=== PATIENT | female | born 1985 | race Caucasian/White ===

== ENCOUNTER → 2016-10-25 | Outpatient (REF) | payer BC ==
[~2016-10-25] MED LIST: IBUP600T26 PO; ZANTTAB9 PO
[2016-10-25 21:23] LABS: MEAN CORPUSCULAR HEMOGLOBIN 31.8 pg (27.0-33.0); MEAN CORPUSCULAR HGB CONC 33.5 g/dl (32.0-36.5); MEAN CORPUSCULAR VOLUME 95.1 fl (80.0-96.0); RED CELL DISTRIBUTION WIDTH 11.7 % (11.5-14.5)
[2016-10-25 22:44] LABS: HCG, SERUM QUANTITATIVE 7928 MIU/ML
[2016-10-26 08:40] LABS: HIV SCRN NEGATIVE (NEGATIVE); HIV SCRN1 NEGATIVE (NEGATIVE)
[2016-10-26 08:41] LABS: CONTROL LINE INT CTR LINE PRESENT
[2016-10-27 10:11] LABS: HEPATITIS B SURFACE ANTIBODY NEGATIVE (POSITIVE)
== END ==
LOC: M LAB REF 16:23
PROVIDERS: ATTEND Obstetrics & Gynecology
DX: O36.80X0 Pregnancy with inconclusive fetal viability, not applicable or unspecified (principal); Z3A.00 Weeks of gestation of pregnancy not specified

== ENCOUNTER 2016-11-15 07:15 | Emergency (ER) | payer BC ==
[2016-11-15] MEDS ORDERED: diphenhydrAMINE 25 MG CAP As Ordered ONE (07:43)
--- NOTE | 2016-11-15 08:03 | EDDOCDS ---
Nurse's Notes [facility] Name: Lakesha Gonzalez Age: 31 yrs Sex: Female : 1985 Arrival Date: 11/15/2016 Time: 07:15 Bed 9 Private MD: Diagnosis: Allergic contact dermatitis Presentation: 11/15 07:20 Presenting complaint: Patient states: states rash to torso, noticed this am, allergy ml6 bees strawberries. Adult Sepsis Screening: The patient does not have new or worsening altered mentation. Patient's respiratory rate is less than 22. Systolic blood pressure is greater than 100. Patient has a qSOFA score of 0- Negative Sepsis Screen. Suicide/Homicide risk assessment- the patient denies having any suicidal and/or homicidal ideations and does not present with any other emotional, behavioral or mental health complaints. Status: Patient is not a health services director or dependent. Transition of care: patient was not received from another setting of care. 07:20 Acuity: GINNA Level 4 ml6 07:20 Acuity: GINNA Level 3 ml6 07:20 Method Of Arrival: Walkin/Carried/Asstd ml6 Triage Assessment: 07:23 General: Appears in no apparent distress, Behavior is appropriate for age, cooperative. ml6 Pain: Denies pain. HIV screening NA for this visit Offered previously. Neurological: No deficits noted. Cardiovascular: No deficits noted. Capillary refill < 3 seconds is brisk in bilateral fingers toes. Respiratory: Airway is patent Respiratory effort is even, unlabored, Respiratory pattern is regular, symmetrical, Breath sounds are clear bilaterally. Reports no respiratory complaints. Derm: Rash noted that is red, raised, on chest. 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 10-400 mg-mcg Oral cap 1 tablet daily (Last dose: 11/15/2016 07:00) - PMHx: none; - PSHx: right breast Bx; cervical Bx; - Social history: Smoking status: Patient uses tobacco products, heavy tobacco smoker. No barriers to communication noted, Speaks appropriately for age. - : The pt / caregiver states he / she is not on anticoagulants. Home medication list is obtained from the patient. - Exposure Risk Screening:: None identified. Screenin:47 Screening information is obtained from the patient. Fall risk: No risks identified. jmk Assistance ADL's: requires no assistance with activities of daily living. Abuse/DV Screen: The patient / caregiver reports he/she is: not in a situation that causes fear, pain or injury. Nutritional screening: No deficits noted. Advance Directives: Currently, there is no health care proxy. There is no active DNR order. There is no living will. There is no Power of Rooming House Inspector. Advance directive information has not previously been placed in an [facility] medical record. home support is adequate. Assessment: 07:46 General: Appears in no apparent distress, skin warm and dry color satisfactory moist jmk pink oral mucosa. scattered area of red raised rash over anterior chest. No resp distress. chest CTA. 07:48 Respiratory: No deficits noted. Airway is patent Respiratory effort is even, unlabored, k Respiratory pattern is regular, Breath sounds are clear bilaterally. Vital Signs: 07:21 BP 122 / 66; Pulse 85; Resp 16; Temp 97.5(TE); Pulse Ox 98% on R/A; Weight 61.23 kg ml6 (R); Height 5 ft. 4 in. (162.56 cm) (R); Pain 0/10; 07:21 Body Mass Index 23.17 (61.23 kg, 162.56 cm) ml6 Vitals: 07:21 Log In Time: November 15, 2016 at 07:14. ml6 ED Course: 07:17 Patient visited by Melquiades Marin. mm15 07:17 Patient moved to Waiting mm15 07:21 Triage Initiated ml6 07:25 Patient moved to [facility] Wait ml6 07:35 Patient moved to 9 sep 07:36 [facility] ke 07:36 Patient visited by Marco Benitez FNP. ke 07:36 Patient visited by Marco Benitez FNP. ke 07:40 Diane Lyons MD is Attending Physician. sd1 07:47 The patient / caregiver is instructed regarding the plan of care and ED course. k 07:47 No IV's were initiated during this patient's visit. No procedures done that require jmk assistance. Administered Medications: 07:46 Drug: diphenhydrAMINE 50 mg [diphenhydramine 25 mg capsule (2 caps)] Route: PO; jmk Order Results: There are currently no results for this order. Outcome: 07:43 Discharge ordered by Provider. sd1 08:02 Discharge Assessment: Patient awake, alert and oriented x 3. No cognitive and/or jmk functional deficits noted. Patient verbalized understanding of disposition instructions. patient administered narcotics - no. The following High Risk Discharge criteria are identified: None. Discharged to home ambulatory, with friend. Condition: good. Discharge instructions given to patient, Instructed on discharge instructions, follow up and referral plans. medication usage, Demonstrated understanding of instructions, medications, Pt was receptive of discharge instructions/ teaching. No special radiology studies were completed. Property :Personal belongings accompany Pt. 08:02 Patient left the ED. riddhik Signatures: Diane Lyons MD MD sd1 Toni Sharma,RN Judith Pisano, RN Marco Lewis FNP FNP ke Lowe, Matthew RN RN ml6 Melquiades Marin mm15 PREMA
--- NOTE | 2016-11-15 08:03 | EDDOCDS ---
Physician Documentation [facility] Name: Lakesha Gonzalez Age: 31 yrs Sex: Female : 1985 Arrival Date: 11/15/2016 Time: 07:15 Bed 9 Private MD: Disposition: 11/15/16 07:43 Discharged to Home/Self Care. Impression: Allergic contact dermatitis. - Condition is Stable. - Discharge Instructions: Allergies. - Prescriptions for hydrocortisone acetate 1 % Topical cream - apply 1 inch by TOPICAL route 2 times per day; 1 tube. - Medication Reconciliation, Local Pharmacy Hours form. - Follow up: Private Physician; When: 1 - 2 days. - Problem is new. - Symptoms are unchanged. Historical: - Allergies: Bees; Strawberries; glucose (tolerance test); - Home Meds: 1. 10-400 mg-mcg Oral cap 1 tablet daily (Last dose: 11/15/2016 07:00) - PMHx: none; - PSHx: right breast Bx; cervical Bx; - Social history: Smoking status: Patient uses tobacco products, heavy tobacco smoker. No barriers to communication noted, Speaks appropriately for age. - : The pt / caregiver states he / she is not on anticoagulants. Home medication list is obtained from the patient. - Exposure Risk Screening:: None identified. 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 4 in. (162.56 cm) (R); Pain 0/10; 07:21 Body Mass Index 23.17 (61.23 kg, 162.56 cm) ml6 MDM: 07:41 diphenhydrAMINE 50 mg PO once ordered. sd1 07:50 Financial registration complete. lg Administered Medications: 07:46 Drug: diphenhydrAMINE 50 mg [diphenhydramine 25 mg capsule (2 caps)] Route: PO; talia Signatures: Diane Lyons MD MD sd1 Toni Sharma,RN RN riddhik Cheyanne Villalobos, Mikel Loyola lg, RN RN ml6 LINETTED
--- NOTE | 2016-11-17 09:03 | EDDOCDS ---
Physician Documentation [facility] Name: Lakesha Gonzalez Age: 31 yrs Sex: Female : 1985 Arrival Date: 11/15/2016 Time: 07:15 Bed 9 Private MD: Disposition: 11/15/16 07:43 Discharged to Home/Self Care. Impression: Allergic contact dermatitis. - Condition is Stable. - Discharge Instructions: Allergies. - Prescriptions for hydrocortisone acetate 1 % Topical cream - apply 1 inch by TOPICAL route 2 times per day; 1 tube. - Medication Reconciliation, Local Pharmacy Hours form. - Follow up: Private Physician; When: 1 - 2 days. - Problem is new. - Symptoms are unchanged. Historical: - Allergies: Bees; Strawberries; glucose (tolerance test); - Home Meds: 1. 10-400 mg-mcg Oral cap 1 tablet daily (Last dose: 11/15/2016 07:00) - PMHx: none; - PSHx: right breast Bx; cervical Bx; - Social history: Smoking status: Patient uses tobacco products, heavy tobacco smoker. No barriers to communication noted, Speaks appropriately for age. - : The pt / caregiver states he / she is not on anticoagulants. Home medication list is obtained from the patient. - Exposure Risk Screening:: None identified. 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 4 in. (162.56 cm) (R); Pain 0/10; 07:21 Body Mass Index 23.17 (61.23 kg, 162.56 cm) ml6 MDM: 07:41 diphenhydrAMINE 50 mg PO once ordered. sd1 07:50 Financial registration complete. lg 08:57 [facility] Payment Agreement was scanned into [employer] and attached to record. lg 14:57 T-Sheet-- Draft Copy was scanned into [employer] and attached to record. gb Administered Medications: 07:46 Drug: diphenhydrAMINE 50 mg [diphenhydramine 25 mg capsule (2 caps)] Route: PO; talia Signatures: Diane Lyons MD MD sd1 Toni SharmaRN RN Mini Delacruz, Reg Reg gb Cheyanne Villalobos, Reg Reg lg Mikel Guerrero RN RN ml6 The chart was reviewed and I authenticate all verbal orders and agree with the evaluation and treatment provided.Attachments: 08:57 [facility] Payment Agreement lg 14:57 T-Sheet-- Draft Copy gb Chart Complete MTDD
--- NOTE | 2016-11-17 09:03 | EDDOCDS ---
Physician Documentation [facility] Name: Lakesha Gonzalez Age: 31 yrs Sex: Female : 1985 Arrival Date: 11/15/2016 Time: 07:15 Bed 9 Private MD: Disposition: 11/15/16 07:43 Discharged to Home/Self Care. Impression: Allergic contact dermatitis. - Condition is Stable. - Discharge Instructions: Allergies. - Prescriptions for hydrocortisone acetate 1 % Topical cream - apply 1 inch by TOPICAL route 2 times per day; 1 tube. - Medication Reconciliation, Local Pharmacy Hours form. - Follow up: Private Physician; When: 1 - 2 days. - Problem is new. - Symptoms are unchanged. Historical: - Allergies: Bees; Strawberries; glucose (tolerance test); - Home Meds: 1. 10-400 mg-mcg Oral cap 1 tablet daily (Last dose: 11/15/2016 07:00) - PMHx: none; - PSHx: right breast Bx; cervical Bx; - Social history: Smoking status: Patient uses tobacco products, heavy tobacco smoker. No barriers to communication noted, Speaks appropriately for age. - : The pt / caregiver states he / she is not on anticoagulants. Home medication list is obtained from the patient. - Exposure Risk Screening:: None identified. 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 4 in. (162.56 cm) (R); Pain 0/10; 07:21 Body Mass Index 23.17 (61.23 kg, 162.56 cm) ml6 MDM: 07:41 diphenhydrAMINE 50 mg PO once ordered. sd1 07:50 Financial registration complete. lg 08:57 [facility] Payment Agreement was scanned into [employer] and attached to record. lg 14:57 T-Sheet-- Draft Copy was scanned into [employer] and attached to record. gb Administered Medications: 07:46 Drug: diphenhydrAMINE 50 mg [diphenhydramine 25 mg capsule (2 caps)] Route: PO; talia Signatures: Diane Lyons MD MD sd1 Toni SharmaRN RN Mini Delacruz, Reg Reg gb Cheyanne Villalobos, Reg Reg lg Mikel Guerrero RN RN ml6 The chart was reviewed and I authenticate all verbal orders and agree with the evaluation and treatment provided.Attachments: 08:57 [facility] Payment Agreement lg 14:57 T-Sheet-- Draft Copy gb Chart Complete MTDD
--- NOTE | 2016-11-17 09:03 | EDDOCDS ---
Nurse's Notes [facility] Name: Lakesha Gonzalez Age: 31 yrs Sex: Female : 1985 Arrival Date: 11/15/2016 Time: 07:15 Bed 9 Private MD: Diagnosis: Allergic contact dermatitis Presentation: 11/15 07:20 Presenting complaint: Patient states: states rash to torso, noticed this am, allergy ml6 bees strawberries. Adult Sepsis Screening: The patient does not have new or worsening altered mentation. Patient's respiratory rate is less than 22. Systolic blood pressure is greater than 100. Patient has a qSOFA score of 0- Negative Sepsis Screen. Suicide/Homicide risk assessment- the patient denies having any suicidal and/or homicidal ideations and does not present with any other emotional, behavioral or mental health complaints. Status: Patient is not a service station attendant or dependent. Transition of care: patient was not received from another setting of care. 07:20 Acuity: GINNA Level 4 ml6 07:20 Acuity: GINNA Level 3 ml6 07:20 Method Of Arrival: Walkin/Carried/Asstd ml6 Triage Assessment: 07:23 General: Appears in no apparent distress, Behavior is appropriate for age, cooperative. ml6 Pain: Denies pain. HIV screening NA for this visit Offered previously. Neurological: No deficits noted. Cardiovascular: No deficits noted. Capillary refill < 3 seconds is brisk in bilateral fingers toes. Respiratory: Airway is patent Respiratory effort is even, unlabored, Respiratory pattern is regular, symmetrical, Breath sounds are clear bilaterally. Reports no respiratory complaints. Derm: Rash noted that is red, raised, on chest. 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 10-400 mg-mcg Oral cap 1 tablet daily (Last dose: 11/15/2016 07:00) - PMHx: none; - PSHx: right breast Bx; cervical Bx; - Social history: Smoking status: Patient uses tobacco products, heavy tobacco smoker. No barriers to communication noted, Speaks appropriately for age. - : The pt / caregiver states he / she is not on anticoagulants. Home medication list is obtained from the patient. - Exposure Risk Screening:: None identified. Screenin:47 Screening information is obtained from the patient. Fall risk: No risks identified. jmk Assistance ADL's: requires no assistance with activities of daily living. Abuse/DV Screen: The patient / caregiver reports he/she is: not in a situation that causes fear, pain or injury. Nutritional screening: No deficits noted. Advance Directives: Currently, there is no health care proxy. There is no active DNR order. There is no living will. There is no Power of Package Clerk. Advance directive information has not previously been placed in an [facility] medical record. home support is adequate. Assessment: 07:46 General: Appears in no apparent distress, skin warm and dry color satisfactory moist jmk pink oral mucosa. scattered area of red raised rash over anterior chest. No resp distress. chest CTA. 07:48 Respiratory: No deficits noted. Airway is patent Respiratory effort is even, unlabored, k Respiratory pattern is regular, Breath sounds are clear bilaterally. Vital Signs: 07:21 BP 122 / 66; Pulse 85; Resp 16; Temp 97.5(TE); Pulse Ox 98% on R/A; Weight 61.23 kg ml6 (R); Height 5 ft. 4 in. (162.56 cm) (R); Pain 0/10; 07:21 Body Mass Index 23.17 (61.23 kg, 162.56 cm) ml6 Vitals: 07:21 Log In Time: November 15, 2016 at 07:14. ml6 ED Course: 07:17 Patient visited by Melquiades Marin. mm15 07:17 Patient moved to Waiting mm15 07:21 Triage Initiated ml6 07:25 Patient moved to [facility] Wait ml6 07:35 Patient moved to 9 sep 07:36 [facility] ke 07:36 Patient visited by Marco Benitez FNP. ke 07:36 Patient visited by Marco Benitez FNP. ke 07:40 Diane Lyons MD is Attending Physician. sd1 07:47 The patient / caregiver is instructed regarding the plan of care and ED course. k 07:47 No IV's were initiated during this patient's visit. No procedures done that require jmk assistance. 08:55 Patient name changed from Lakesha\S\Suzy\S\Lisa\S\ to Lakesha\S\Nick\S\Lisa. EDMS 08:57 [facility] Payment Agreement was scanned into [employer] and attached to record. 14:57 T-Sheet-- Draft Copy was scanned into [employer] and attached to record. gb Administered Medications: 07:46 Drug: diphenhydrAMINE 50 mg [diphenhydramine 25 mg capsule (2 caps)] Route: PO; jmk Order Results: There are currently no results for this order. Outcome: 07:43 Discharge ordered by Provider. sd1 08:02 Discharge Assessment: Patient awake, alert and oriented x 3. No cognitive and/or jmk functional deficits noted. Patient verbalized understanding of disposition instructions. patient administered narcotics - no. The following High Risk Discharge criteria are identified: None. Discharged to home ambulatory, with friend. Condition: good. Discharge instructions given to patient, Instructed on discharge instructions, follow up and referral plans. medication usage, Demonstrated understanding of instructions, medications, Pt was receptive of discharge instructions/ teaching. No special radiology studies were completed. Property :Personal belongings accompany Pt. 08:02 Patient left the ED. talia Signatures: Dispatcher [facility] Diane Lyons MD MD sd1 Toni Sharma,RN Judith Pisano RN Mini Youssef, Reg Reg gb Cheyanne Villalobos, Reg Reg lg Marco Benitez, CLUBHOUSE MANAGER Mikel Apodaca, RN RN ml6 Melquiades Marin mm15 Chart Complete MTDD
== END 2016-11-15 08:02 | disposition home or self-care (01) ==
LOC: M ED 07:15
DX: O99.89 Other specified diseases and conditions complicating pregnancy, childbirth and the puerperium (principal); L23.9 Allergic contact dermatitis, unspecified cause; Z3A.08 8 weeks gestation of pregnancy; O99.331 Smoking (tobacco) complicating pregnancy, first trimester; Z79.899 Other long term (current) drug therapy; Z91.030 Bee allergy status; Z91.018 Allergy to other foods; Z88.8 Allergy status to other drugs, medicaments and biological substances

== ENCOUNTER → 2016-11-15 | Outpatient (CLI) | payer BC | LOC: M LAB 08:28 | PROVIDERS: ATTEND Specialist | DX: Z34.81 Encounter for supervision of other normal pregnancy, first trimester (principal) ==

== ENCOUNTER → 2016-11-17 | Outpatient (REF) | payer BC | LOC: M SFHCLERA 12:02 | PROVIDERS: ATTEND Nurse Practitioner Family | DX: R21 Rash and other nonspecific skin eruption (principal) ==

== ENCOUNTER → 2016-12-03 | Day surgery (SDC) | payer BC ==
[~2016-12-03] VITALS: Ht 162.6 cm; Wt 64.4 kg
[~2016-12-03] MED LIST changes: +ACETAMINOPHEN 500 MG TAB PO ONE; +KETOROLAC 30 MG/ML VIAL (J1885) As Ordered ONE; +KETOROLAC 30 MG/ML VIAL (J1885) IV PRN; +LIDOCAINE 1% SDV INJ 30 ML VIAL As Ordered ONE; +LIDOCAINE 2% INJ 100 MG/5 ML SDV (FOR ANES.) As Ordered ONE; +LR 1,000 ML IV SCH; +METOCLOPRAMIDE INJ 10MG/2ML VIAL (J2765) IV PRN; +MIDAZOLAM INJ 2 MG/2 ML VIAL (J2250) As Ordered ONE; +ONDANSETRON 4MG/2ML VIAL (J2405) IV PRN; +PERCOCET 5MG/325MG TAB PO PRN; +PROPOFOL 200 MG/20 ML VIAL As Ordered ONE; +[UNRECOGNIZED DRUG - CODE] PO; +fentaNYL 100 MCG/2 ML INJECTION (J3010) As Ordered ONE; +fentaNYL 100 MCG/2 ML INJECTION (J3010) IV PRN
[2016-12-03 15:45] VITALS: BP 105/54
--- NOTE | 2016-12-05 08:05 | RO ---
DATE OF PROCEDURE: 12/03/2016 PREOPERATIVE DIAGNOSIS: Embryonic demise. POSTOPERATIVE DIAGNOSIS: Embryonic demise. PROCEDURE: Dilation, evacuation and curettage. SURGEON: Vidal Philippe MD SKIVER SOCK LININGS: ANESTHESIA: General endotracheal. ESTIMATED BLOOD LOSS: 50 mL. FINDINGS: Moderate amount of product of conception, 8-9 week size uterus. OPERATIVE SUMMARY: The patient taken to the operating room where general endotracheal anesthesia was induced. She was prepped and draped in sterile fashion in the dorsal lithotomy position. A speculum was placed. The anterior lip of the cervix was grasped with a tenaculum. The cervix was dilated with tapered dilators. A #9 mm suction curette was placed through the internal os. The suction device was activated. The curette was gently rotated until products of conception were noted coming through the suction tubing. Sharp curettage was performed. The uterine cavity was deemed to be empty. All instruments were removed. Sponge and instrument counts were correct.
== END | disposition home or self-care (01) ==
LOC: M SDC 09:20
PROVIDERS: ATTEND Specialist
DX: O02.1 Missed abortion (principal); D64.9 Anemia, unspecified; F32.9 Major depressive disorder, single episode, unspecified; J45.909 Unspecified asthma, uncomplicated; F17.210 Nicotine dependence, cigarettes, uncomplicated; Z91.040 Latex allergy status; Z91.030 Bee allergy status
CPT/HCPCS: 36415; 59820; 85014; 85018; 88305; J1885; J2250; J3010

== ENCOUNTER 2016-12-09 05:14 | Emergency (ER) | payer BC ==
[~2016-12-09] VITALS: Ht 162.6 cm; Wt 61.7 kg
[~2016-12-09 05:14] MED LIST changes: -ACETAMINOPHEN 500 MG TAB PO ONE; -KETOROLAC 30 MG/ML VIAL (J1885) As Ordered ONE; -KETOROLAC 30 MG/ML VIAL (J1885) IV PRN; -LIDOCAINE 1% SDV INJ 30 ML VIAL As Ordered ONE; -LIDOCAINE 2% INJ 100 MG/5 ML SDV (FOR ANES.) As Ordered ONE; -LR 1,000 ML IV SCH; -METOCLOPRAMIDE INJ 10MG/2ML VIAL (J2765) IV PRN; -MIDAZOLAM INJ 2 MG/2 ML VIAL (J2250) As Ordered ONE; -ONDANSETRON 4MG/2ML VIAL (J2405) IV PRN; -PERCOCET 5MG/325MG TAB PO PRN; -PROPOFOL 200 MG/20 ML VIAL As Ordered ONE; -fentaNYL 100 MCG/2 ML INJECTION (J3010) As Ordered ONE; -fentaNYL 100 MCG/2 ML INJECTION (J3010) IV PRN
[2016-12-09] MEDS ORDERED: NS 1,000 ML IV ONE (05:45)
[2016-12-09] MEDS ORDERED: HYDROmorphone HCL 1 MG/ML SYRINGE (J1170) IV ONE (06:00)
[2016-12-09 06:39] LABS: BASO % 0.6 % (0.0-1.0); EOS # 0.1 K/mm3 (0.0-0.50); LARGE UNSTAINED CELL # 0.1 K/mm3 (0.0-0.4); LARGE UNSTAINED CELL % 1.5 % (0.0-4.0); LYMPH # 1.7 K/mm3 (1.5-4.5); LYMPH % 33.2 % (24.0-44.0); MEAN CORPUSCULAR HEMOGLOBIN 32.3 pg (27.0-33.0); MEAN CORPUSCULAR HGB CONC 34.5 g/dl (32.0-36.5); MEAN CORPUSCULAR VOLUME 93.4 fl (80.0-96.0); MONO # 0.3 K/mm3 (0.0-0.8); MONO % 5.2 % (0.0-5.0); NEUTROPHILS # 2.9 K/mm3 (1.8-7.7); NEUTROPHILS % 57.6 % (36.0-66.0); PLATELET COUNT, AUTOMATED 224 k/mm3 (150-450); RED CELL DISTRIBUTION WIDTH 11.9 % (11.5-14.5)
[2016-12-09 06:57] LABS: ANION GAP 9 MEQ/L (8-16); BLOOD UREA NITROGEN 13 MG/DL (7-18); CALCIUM LEVEL 8.9 MG/DL (8.5-10.1); CARBON DIOXIDE LEVEL 26 MEQ/L (21-32); CHLORIDE LEVEL 108 MEQ/L (98-107); CREATININE FOR GFR 0.73 MG/DL (0.55-1.02); GLOMERULAR FILTRATION RATE > 60.0 (>60); GLUCOSE, FASTING 102 MG/DL (70-105); POTASSIUM SERUM 4.3 MEQ/L (3.5-5.1); SODIUM LEVEL 143 MEQ/L (136-145)
[2016-12-09 07:13] VITALS: BP 126/60
[2016-12-09 07:19] LABS: INR 1.02
[2016-12-09] MEDS ORDERED: PERC5TAB6 PO (08:00)
--- NOTE | 2016-12-09 08:10 | REP ---
Clinical: Pelvic pain with recent dilatation and curettage. Technique: Transabdominal pelvic ultrasound followed by transvaginal examination for better evaluation of the endometrium and adnexa with color Doppler evaluation of the ovaries. Findings: Heterogeneous anteverted uterus measures 8.5 x 4.6 x 6.9 cm. Endometrial complex is heterogeneous and thickened to 19 mm complex material noted towards the fundus. Differential diagnosis includes hemorrhagic debris related to recent D C. However, retained products of conception cannot definitively be excluded. Ovaries are normal in appearance and vascularity without evidence for torsion. Right ovary measures 3.7 x 2.3 x 2.4 cm of 1.5 cm dominant follicle; RI= 0.47. Left ovary measures 2.7 x 2.6 x 2.0 cm and demonstrates satisfactory venous flow. Impression: Heterogeneous material distending the endometrial complex to 19 mm. Differential diagnosis includes hemorrhagic debris and retained products of conception cannot be excluded. Correlation with HCG levels recommended. Signed by Justice Cruz MD 12/09/2016 08:01 A
== END 2016-12-09 08:16 | disposition home or self-care (01) ==
LOC: M ED 06:22
DX: R10.2 Pelvic and perineal pain (principal); R93.8 Abnormal findings on diagnostic imaging of other specified body structures; Z91.040 Latex allergy status; Z91.030 Bee allergy status; Z79.899 Other long term (current) drug therapy
CPT/HCPCS: 36415; 76830; 76856; 80048; 85025; 85610; 85730; 93976; 96361; 96374; 99282; J1170

== ENCOUNTER → 2017-05-08 | Outpatient (CLI) | payer BC ==
[~2017-05-08] MED LIST changes: +PERC5TAB12 PO
--- NOTE | 2017-05-08 10:18 | REP ---
Acute abdominal series including PA chest and supine upright abdomen: Comparisons l2015. PA chest: Lung talavera are clear. Cardiac size is normal. The jorge, mediastinum, and bony thorax unremarkable. There is no free seven diaphragmatic air. Impression: Negative PA chest. No interval change. Abdomen, supine and upright views: The bowel gas pattern is normal. The skeletal structures and soft tissues are otherwise are. Faintly visible splenic calcified granulomas are incidentally noted, unchanged. Impression: Normal bowel gas pattern. No interval change. Signed by Sandeep Rock MD 05/08/2017 10:09 A
--- NOTE | 2017-05-08 10:20 | REP ---
Lumbar spine five views: There are no comparisons. Vertebral body heights, interspacing alignment are normal. There is no spondylolysis or spondylolisthesis. The facets, pedicles and sacroiliac articulations are unremarkable. Impression: Negative lumbar spine. Signed by Sandeep Rock MD 05/08/2017 10:11 A
== END ==
LOC: M WUC 09:05
PROVIDERS: ATTEND Physician Assistant
DX: M54.5 Low back pain (principal); R10.814 Left lower quadrant abdominal tenderness

== ENCOUNTER → 2017-08-23 | Outpatient (REF) | payer BC | LOC: M SFHCCLAY 16:18 | PROVIDERS: ATTEND Family Medicine | DX: R50.9 Fever, unspecified (principal) ==

== ENCOUNTER → 2017-09-14 | Outpatient (CLI) | payer BC ==
--- NOTE | 2017-09-14 19:05 | REP ---
RIGHT LOWER LEG: Two views. AP and lateral views of the right lower leg are performed and demonstrate no fracture or dislocation. No intrinsic osseous pathology is seen. IMPRESSION: No fracture or dislocation.
== END ==
LOC: M CLY 10:50
PROVIDERS: ATTEND Family Medicine
DX: S89.91XA Unspecified injury of right lower leg, initial encounter (principal); X58.XXXA Exposure to other specified factors, initial encounter; Y92.89 Other specified places as the place of occurrence of the external cause; Y93.89 Activity, other specified; Y99.8 Other external cause status

== ENCOUNTER 2018-02-28 11:01 | Emergency (ER) | payer BC ==
[2018-02-28 11:45] LABS: KETONE, URINE AUTO RFX NEGATIVE (NEGATIVE); MUCUS, URINE RFX SMALL (NEGATIVE); NITRITE, URINE AUTO RFX NEGATIVE (NEGATIVE); RBC, URINE AUTO RFX 0 /HPF (0-3); SPECIFIC GRAVITY UR AUTO RFX 1.019 (1.002-1.035); SQUAM EPITHELIAL CELL UR AURFX 4 /HPF (0-6); WBC, URINE AUTO RFX 1 /HPF (0-3)
[2018-02-28 12:11] LABS: LEUKOCYTE ESTERASE UR AUTO RFX TRACE (NEGATIVE)
[2018-02-28 12:44] LABS: BASO # 0.1 10^3/uL (0.0-0.2); BASO % 0.7 % (0.0-1.0); HEMATOCRIT 42.2 % (36.0-47.0); HEMOGLOBIN 14.6 g/dl (12.0-15.5); IMMATURE GRANULOCYTE % 0.4 % (0-3.0); LYMPH # 2.3 10^3/uL (1.5-4.5); LYMPH % 33.5 % (24.0-44.0); MEAN CORPUSCULAR HEMOGLOBIN 31.9 pg (27.0-33.0); MEAN CORPUSCULAR HGB CONC 34.6 g/dl (32.0-36.5); MEAN CORPUSCULAR VOLUME 92.3 fl (80.0-96.0); MONO # 0.6 10^3/uL (0.0-0.8); MONO % 7.9 % (0.0-5.0); NEUTROPHILS % 57.5 % (36.0-66.0); PLATELET COUNT, AUTOMATED 256 10^3/uL (150-450); RED BLOOD COUNT 4.57 10^6/uL (4.00-5.40); RED CELL DISTRIBUTION WIDTH 11.9 % (11.5-14.5); WHITE BLOOD COUNT 6.9 10^3/uL (4.0-10.0)
[2018-02-28] MEDS: ONDANSETRON 4MG/2ML VIAL (J2405) IV (12:50)
[2018-02-28] MEDS: NS 1,000 ML IV (12:50)
[2018-02-28] MEDS: KETOROLAC 30 MG/ML VIAL (J1885) IV (12:51)
[2018-02-28 13:22] LABS: ANION GAP 4 MEQ/L (8-16); BLOOD UREA NITROGEN 8 MG/DL (7-18); CALCIUM LEVEL 8.9 MG/DL (8.5-10.1); CARBON DIOXIDE LEVEL 26 MEQ/L (21-32); CHLORIDE LEVEL 107 MEQ/L (98-107); CREATININE FOR GFR 0.77 MG/DL (0.55-1.30); GLOMERULAR FILTRATION RATE > 60.0 (>60); GLUCOSE, FASTING 94 MG/DL (70-100); POTASSIUM SERUM 4.3 MEQ/L (3.5-5.1); SODIUM LEVEL 137 MEQ/L (136-145)
[2018-02-28] MEDS ORDERED: ISOVUE-370 76% 100ML VIAL (Q9967) As Ordered (13:43)
== END 2018-02-28 14:52 | disposition home or self-care (01) ==
LOC: M ED 11:01
DX: R10.9 Unspecified abdominal pain (principal); R19.7 Diarrhea, unspecified; R11.0 Nausea; J45.909 Unspecified asthma, uncomplicated; F41.9 Anxiety disorder, unspecified; F43.10 Post-traumatic stress disorder, unspecified; K57.92 Diverticulitis of intestine, part unspecified, without perforation or abscess without bleeding; F17.200 Nicotine dependence, unspecified, uncomplicated; Z87.442 Personal history of urinary calculi; Z91.018 Allergy to other foods; Z91.030 Bee allergy status; Z91.040 Latex allergy status
CPT/HCPCS: J2405

== ENCOUNTER → 2018-08-23 | Outpatient (REF) | payer BC ==
[2018-08-24 12:36] LABS: APPEARANCE, URINE CLOUDY (CLEAR); BACTERIA, URINE AUTO NEGATIVE (NEGATIVE); BILIRUBIN, URINE AUTO NEGATIVE (NEGATIVE); BLOOD, URINE BLOOD NEGATIVE (NEGATIVE); COLOR, URINE YELLOW (YELLOW); GLUCOSE, URINE (UA) AUTO NEGATIVE (NEGATIVE); KETONE, URINE AUTO TRACE mg/dL (NEGATIVE); LEUKOCYTE ESTERASE, URINE AUTO NEGATIVE (NEGATIVE); MUCUS, URINE SMALL (NEGATIVE); NITRITE, URINE AUTO NEGATIVE (NEGATIVE); PROTEIN, URINE AUTO NEGATIVE (NEGATIVE); RBC, URINE AUTO 0 /HPF (0-3); SPECIFIC GRAVITY URINE AUTO 1.025 (1.002-1.035); SQUAMOUS EPITHELIAL CELL UR AU 8 /HPF (0-6); WBC, URINE AUTO 2 /HPF (0-3)
== END ==
LOC: M SFHCCLAY 11:20
PROVIDERS: ATTEND Family Medicine
DX: R35.0 Frequency of micturition (principal)

== ENCOUNTER 2019-01-20 09:49 | Emergency (ER) | payer BC, SELFPAY ==
[~2019-01-20] VITALS: Ht 162.6 cm; Wt 74.1 kg
[2019-01-20] MEDS ORDERED: IBUP-1114 PO (09:58)
[2019-01-20] MEDS ORDERED: CLAR10CA3 PO (09:58)
[2019-01-20] MEDS ORDERED: VENTAER INH (09:58)
[2019-01-20] MEDS ORDERED: ONDANSETRON 4MG/2ML VIAL (J2405) IV ONE (10:15)
[2019-01-20] MEDS ORDERED: NS 1,000 ML IV ONE (10:15)
[2019-01-20 10:25] LABS: BASO % 0.5 % (0.0-1.0); HEMATOCRIT 41.5 % (36.0-47.0); HEMOGLOBIN 14.8 g/dl (12.0-15.5); LYMPH # 1.8 10^3/uL (1.5-4.5); LYMPH % 28.7 % (24.0-44.0); MEAN CORPUSCULAR HEMOGLOBIN 32.2 pg (27.0-33.0); MEAN CORPUSCULAR HGB CONC 35.7 g/dl (32.0-36.5); MEAN CORPUSCULAR VOLUME 90.4 fl (80.0-96.0); MONO # 0.4 10^3/uL (0.0-0.8); MONO % 6.9 % (0.0-5.0); NEUTROPHILS % 63.6 % (36.0-66.0); PLATELET COUNT, AUTOMATED 197 10^3/uL (150-450); RED BLOOD COUNT 4.59 10^6/uL (4.00-5.40); WHITE BLOOD COUNT 6.2 10^3/uL (4.0-10.0)
[2019-01-20 10:48] LABS: ALBUMIN 4.2 GM/DL (3.2-5.2); ALT/SGPT 45 U/L (12-78); BILIRUBIN,DIRECT 0.2 MG/DL (0.0-0.2); BILIRUBIN,TOTAL 0.6 MG/DL (0.2-1.0); BLOOD UREA NITROGEN 13 MG/DL (7-18); CALCIUM LEVEL 8.8 MG/DL (8.5-10.1); CARBON DIOXIDE LEVEL 27 MEQ/L (21-32); CHLORIDE LEVEL 105 MEQ/L (98-107); CREATININE FOR GFR 0.79 MG/DL (0.55-1.30); GLOMERULAR FILTRATION RATE > 60.0 (>60); GLUCOSE, FASTING 99 MG/DL (70-100); SODIUM LEVEL 140 MEQ/L (136-145)
[2019-01-20] MEDS ORDERED: METOCLOPRAMIDE INJ 10MG/2ML VIAL (J2765) IV ONE (11:15)
[2019-01-20] MEDS ORDERED: ONDA4TAB6 PO (12:31)
[2019-01-20 12:40] VITALS: BP 117/70
[2019-01-21] MEDS ORDERED: LORA-622 PO (03:51)
[2019-01-21] MEDS ORDERED: IBUP200T45 PO (03:51)
[2019-01-21] MEDS ORDERED: CBD GUMMIES PO (03:53)
[2019-01-21] MEDS ORDERED: PROT1TAB2 PO (04:11)
== END 2019-01-20 12:44 | disposition home or self-care (01) ==
LOC: M ED 09:49
DX: E86.0 Dehydration (principal); J45.909 Unspecified asthma, uncomplicated; F33.9 Major depressive disorder, recurrent, unspecified; F41.9 Anxiety disorder, unspecified; F43.10 Post-traumatic stress disorder, unspecified; Z87.19 Personal history of other diseases of the digestive system; Z87.442 Personal history of urinary calculi; Z79.899 Other long term (current) drug therapy; Z91.018 Allergy to other foods; Z91.030 Bee allergy status; Z91.040 Latex allergy status; F17.210 Nicotine dependence, cigarettes, uncomplicated
CPT/HCPCS: 36415; 80048; 80076; 85025; 96361; 96374; 96375; 99284; J2405; J2765

== ENCOUNTER 2019-01-21 01:45 | Emergency (ER) | payer SELFPAY ==
[~2019-01-21] VITALS: Ht 162.6 cm; Wt 74.1 kg
[~2019-01-21 01:45] MED LIST changes: +CLAR10CA3 PO; +IBUP-1114 PO; +ONDA4TAB6 PO; +VENTAER INH
[2019-01-21 02:20] LABS: BASO % 0.5 % (0.0-1.0); HEMATOCRIT 42.9 % (36.0-47.0); HEMOGLOBIN 14.8 g/dl (12.0-15.5); LYMPH # 1.9 10^3/uL (1.5-4.5); LYMPH % 29.3 % (24.0-44.0); MEAN CORPUSCULAR HEMOGLOBIN 31.8 pg (27.0-33.0); MEAN CORPUSCULAR HGB CONC 34.5 g/dl (32.0-36.5); MEAN CORPUSCULAR VOLUME 92.1 fl (80.0-96.0); MONO # 0.4 10^3/uL (0.0-0.8); MONO % 6.3 % (0.0-5.0); NEUTROPHILS # 4.1 10^3/uL (1.8-7.7); NEUTROPHILS % 63.6 % (36.0-66.0); PLATELET COUNT, AUTOMATED 186 10^3/uL (150-450); RED BLOOD COUNT 4.66 10^6/uL (4.00-5.40); WHITE BLOOD COUNT 6.5 10^3/uL (4.0-10.0)
[2019-01-21 02:39] LABS: HCG, SERUM QUALITATIVE NEGATIVE (NEGATIVE)
[2019-01-21 02:40] LABS: ALBUMIN 4.2 GM/DL (3.2-5.2); ALT/SGPT 43 U/L (12-78); BILIRUBIN,DIRECT 0.2 MG/DL (0.0-0.2); BILIRUBIN,TOTAL 0.9 MG/DL (0.2-1.0); BLOOD UREA NITROGEN 12 MG/DL (7-18); CALCIUM LEVEL 8.6 MG/DL (8.5-10.1); CARBON DIOXIDE LEVEL 25 MEQ/L (21-32); CHLORIDE LEVEL 107 MEQ/L (98-107); GLOMERULAR FILTRATION RATE > 60.0 (>60); GLUCOSE, FASTING 100 MG/DL (70-100); LIPASE 134 U/L (73-393); POTASSIUM SERUM 3.9 MEQ/L (3.5-5.1); SODIUM LEVEL 139 MEQ/L (136-145); TOTAL PROTEIN 7.1 GM/DL (6.4-8.2)
[2019-01-21] MEDS ORDERED: diphenhydrAMINE INJ 50MG/ML VIAL (J1200) IV STA (02:59)
[2019-01-21] MEDS ORDERED: MORPHINE 4 MG/ML 1ML VIAL/SYRINGE (J2270) IV ONE (03:00)
[2019-01-21] MEDS ORDERED: NS 1,000 ML IV ONE (03:00)
[2019-01-21] MEDS: METOCLOPRAMIDE INJ 10MG/2ML VIAL (J2765) IV ONE ×2 (03:01→03:09)
[2019-01-21] MEDS ORDERED: IBUP200T45 PO (03:51)
[2019-01-21] MEDS ORDERED: LORA-622 PO (03:51)
[2019-01-21] MEDS ORDERED: CBD GUMMIES PO (03:53)
[2019-01-21] MEDS ORDERED: PROT1TAB2 PO (04:11)
[2019-01-21] MEDS ORDERED: PANTOPRAZOLE 40MG INJ (PROTONIX) (C9113) IV ONE (04:15)
[2019-01-21 04:27] VITALS: BP 115/63
[2019-01-21] MEDS ORDERED: PANTOPRAZOLE 40MG TAB (PROTONIX) PO ONE (04:30)
--- NOTE | 2019-01-21 05:09 | REPVR ---
EXAM: US Abdomen Limited, Right Upper Quadrant EXAM DATE/TIME: 01/21/2019 3:23 AM CLINICAL HISTORY: 33 years old, female; Abdominal pain; Epigastric; Additional info: Biliary eval TECHNIQUE: Imaging protocol: Real-time ultrasound of the abdomen with image documentation. Examination was focused on the right upper quadrant. COMPARISON: RENAL US 06/10/2015 2:21 PM FINDINGS: Liver: The liver is normal in size and echogenicity. No focal lesions are identified. Gallbladder: No stones or sludge are seen. The gallbladder wall measures 3 mm in thickness. There are small projections from the gallbladder wall into the lumen likely representing small polyps with the largest measuring 4 mm in diameter. The medicine technologist reports a negative Haas's sign. Common bile duct: No biliary ductal dilation is seen. The common bile duct measures 3 mm in diameter. Pancreas: The pancreas appears normal with no ductal dilation but the visibility of the tail of the pancreas was limited by bowel gas. Right kidney: The right kidney is normal in size and echogenicity with no hydronephrosis or stones identified. The right kidney measures 10.3 cm in length. IMPRESSION: 1. No cholelithiasis, biliary ductal dilation, or signs of cholecystitis. 2. Small gallbladder polyps measuring up to 4 mm. No followup recommended for polyps of this size. Electronically signed by: Sarah Triplett On 01/21/2019 05:08:47 AM
[2019-01-22] MEDS ORDERED: BENA25CA4 PO (03:27)
[2019-01-22] MEDS ORDERED: ONDA4TAB6 PO (13:07)
[2019-01-22] MEDS ORDERED: PANT40TA3 PO (13:09)
== END 2019-01-21 04:28 | disposition home or self-care (01) ==
LOC: M ED 01:45
DX: K29.70 Gastritis, unspecified, without bleeding (principal); L50.9 Urticaria, unspecified; J45.909 Unspecified asthma, uncomplicated; Z79.899 Other long term (current) drug therapy; Z91.018 Allergy to other foods; Z91.030 Bee allergy status; Z91.040 Latex allergy status
CPT/HCPCS: 76705; 80048; 80076; 81001; 83690; 84703; 85025; 87086; 96361; 96374; 96375; 99284; J1200; J2270

== ENCOUNTER 2019-01-22 03:20 | Observation (INO) | payer SELFPAY ==
[~2019-01-22] VITALS: Ht 162.6 cm; Wt 74.1 kg
[~2019-01-22 03:20] MED LIST changes: +CBD GUMMIES PO; +IBUP200T45 PO; +LORA-622 PO; +PROT1TAB2 PO
[2019-01-22] MEDS ORDERED: BENA25CA4 PO (03:27)
[2019-01-22] MEDS ORDERED: diphenhydrAMINE INJ 50MG/ML VIAL (J1200) IV STA (03:32)
[2019-01-22] MEDS ORDERED: NS 1,000 ML IV ONE (03:45)
[2019-01-22] MEDS ORDERED: dexameTHASONE 20 MG/5 ML VIAL (J1100) IV ONE (03:45)
[2019-01-22 04:01] LABS: BASO % 0.2 % (0.0-1.0); HEMATOCRIT 42.6 % (36.0-47.0); HEMOGLOBIN 14.6 g/dl (12.0-15.5); LYMPH # 2.1 10^3/uL (1.5-4.5); LYMPH % 23.7 % (24.0-44.0); MEAN CORPUSCULAR HEMOGLOBIN 31.9 pg (27.0-33.0); MEAN CORPUSCULAR HGB CONC 34.3 g/dl (32.0-36.5); MEAN CORPUSCULAR VOLUME 93.2 fl (80.0-96.0); MONO # 0.4 10^3/uL (0.0-0.8); MONO % 4.8 % (0.0-5.0); NEUTROPHILS # 6.4 10^3/uL (1.8-7.7); NEUTROPHILS % 70.9 % (36.0-66.0); PLATELET COUNT, AUTOMATED 175 10^3/uL (150-450); RED BLOOD COUNT 4.57 10^6/uL (4.00-5.40)
[2019-01-22 04:47] LABS: AMPHETAMINES LEVEL URINE NEGATIVE (NEGATIVE); BARBITURATES URINE NEGATIVE (NEGATIVE); BENZODIAZEPINES URINE NEGATIVE (NEGATIVE); CANNABINOIDS URINE NEGATIVE (NEGATIVE); COCAINE METABOLITE URINE NEGATIVE (NEGATIVE); METHADONE URINE NEGATIVE (NEGATIVE); OPIATES URINE POSITIVE (NEGATIVE); PHENCYCLIDINE URINE NEGATIVE (NEGATIVE)
[2019-01-22 04:49] LABS: ALBUMIN 3.8 GM/DL (3.2-5.2); ALT/SGPT 35 U/L (12-78); BILIRUBIN,DIRECT 0.7 MG/DL (0.0-0.2); BILIRUBIN,TOTAL 1.9 MG/DL (0.2-1.0); BLOOD UREA NITROGEN 13 MG/DL (7-18); CALCIUM LEVEL 8.4 MG/DL (8.5-10.1); CARBON DIOXIDE LEVEL 23 MEQ/L (21-32); CHLORIDE LEVEL 104 MEQ/L (98-107); CPK CREATINE PHOSPHOKINASE 56 U/L (26-192); CREATININE FOR GFR 0.82 MG/DL (0.55-1.30); GLOMERULAR FILTRATION RATE > 60.0 (>60); GLUCOSE, FASTING 81 MG/DL (70-100); LIPASE 178 U/L (73-393); POTASSIUM SERUM 4.2 MEQ/L (3.5-5.1); SODIUM LEVEL 137 MEQ/L (136-145); TOTAL PROTEIN 6.4 GM/DL (6.4-8.2)
[2019-01-22] MEDS: GASTROGRAFIN SOLUTION 30ML PO SCH ×2 (05:28→06:10)
[2019-01-22] MEDS ORDERED: ISOVUE-370 76% 100ML VIAL (Q9967) As Ordered ONE (05:55)
[2019-01-22] MEDS ORDERED: ALBUTEROL 90 MCG/ACT 8GM HFA INHALER INH PRN (06:00)
[2019-01-22] MEDS ORDERED: diphenhydrAMINE 25 MG CAP PO PRN (06:00)
[2019-01-22] MEDS ORDERED: ACETAMINOPHEN TAB 650MG DOSE (2X325MG) PO PRN (06:00)
[2019-01-22] MEDS ORDERED: IBUPROFEN 200 MG TAB PO PRN (06:00)
[2019-01-22] MEDS ORDERED: NS 1,000 ML IV SCH (06:00)
--- NOTE | 2019-01-22 06:04 | HPEPDOC ---
General Date of Admission Jan 22, 2019 at 03:21 Chief Complaint The patient is a 33-year-old female admitted with a reason for visit of Nausea And Vomiting. Source: Patient History of Present Illness 33 y/o F c/o nausea, vomiting, diffuse abdominal pain associated with worsening diffuse erythematous rash, multiple joint pain for past few days. In ER pt was found with vitals of BP 118/76, HR 99, RR 16, Temp 99.1, SpO2-98% on RA; Pt was given iv dexamethasone, iv benadryl and NS bolus 1000 ml. Hospitalist service was consulted to admit the pt for further management. Pt was seen and examined at bedside in ER. Pt c/o nausea, generalized erythematous rash involving b/l lower extremities, to rso, back, wrist/ankle pain. Home Medications Scheduled PRN Albuterol Sulfate (Ventolin Hfa) 18 Gm Hfa.aer.ad, 2 PUFF INH Q4H PRN for wheezing, (Reported) Diphenhydramine HCl (Benadryl) 25 Mg Capsule, 50 MG PO Q6H PRN for RASH, (Reported) Ibuprofen (Ibu-200) 200 Mg Tablet, 400 MG PO TID PRN for PAIN, (Reported) Loratadine (Loratadine) 10 Mg Tablet, 10 MG PO DAILY PRN for ALLERGIES, (Reported) [Cbd Gummies] 10 MG CHEW, 1 CHEW PO BID PRN for ANXIETY, (Reported) Allergies Coded Allergies: bee venom protein (honey bee) (Verified Allergy, Unknown, swelling, 01/20/19) latex (Verified Allergy, Unknown, itching/rash, 01/20/19) strawberry (Verified Allergy, Unknown, rash, 01/20/19) Past Medical History Medical History asthma Surgical History dilatation and curettage, tooth extraction Family History reviewed non contributory Social History * Smoker: current smoker Alcohol: Denies Drugs: denies A-FIB/CHADSVASC A-FIB History Current/History of A-Fib/PAF?: No Current Oral Anticoagulant The: No Review of Systems Other systems 10 points review of system was performed and it was negative except as per HPI Physical Examination General Exam: Positive: Alert, Cooperative, No Acute Distress Eye Exam: Positive: PERRLA, Conjunctiva & lids normal ENT Exam: Positive: Atraumatic, Mucous membr. moist/pink Chest Exam: Positive: Clear to auscultation, Normal air movement Heart Exam: Positive: Rate Normal, Normal S1, Normal S2 Abdomen Exam: Positive: Normal bowel sounds, Soft Extremity Exam: Positive: Normal pulses Skin Exam: Positive: Nl turgor and temperature Neuro Exam: Positive: Strength at 5/5 X4 ext, Cranial Nerves 3-12 NL Psych Exam: Positive: Mental status NL, Oriented x 3 Other physical findings diffuse erythematous rash involving b/l lower extremities torso, back Vital Signs Vital Signs Date Time Temp Pulse Resp B/P (MAP) Pulse Ox O2 Delivery O2 Flow Rate FiO2 01/22/19 04:07 99 18 114/71 (85) 98 Room Air 01/22/19 03:20 99.1 Laboratory Data Labs 24H Laboratory Tests 2 01/22/19 03:55: Immature Granulocyte % (Auto) 0.4, White Blood Count 9.0, Red Blood Count 4.57, Hemoglobin 14.6, Hematocrit 42.6, Mean Corpuscular Volume 93.2, Mean Corpuscular Hemoglobin 31.9, Mean Corpuscular Hemoglobin Concent 34.3, Red Cell Distribution Width 12.1, Platelet Count 175, Neutrophils (%) (Auto) 70.9H, Lymphocytes (%) (Auto) 23.7L, Monocytes (%) (Auto) 4.8, Eosinophils (%) (Auto) 0.0, Basophils (%) (Auto) 0.2, Neutrophils # (Auto) 6.4, Lymphocytes # (Auto) 2.1, Monocytes # (Auto) 0.4, Eosinophils # (Auto) 0.0, Basophils # (Auto) 0.0, Nucleated Red Blood Cells % (auto) 0.0, Anion Gap 10, Glomerular Filtration Rate > 60.0, Calc ium Level 8.4L, Aspartate Amino Transf (AST/SGOT) 27, Alanine Aminotransferase (ALT/SGPT) 35, Alkaline Phosphatase 110, Total Bilirubin 1.9#H, Direct Bilirubin 0.7H, Total Creatine Kinase 56, Total Protein 6.4, Albumin 3.8, Albumin/Globulin Ratio 1.46, Lipase 178, Urine Amphetamines Screen NEGATIVE, Urine Benzodiazepines Screen NEGATIVE, Urine Opiates Screen POSITIVEH, Urine Methadone Screen NEGATIVE, Urine Barbiturates Screen NEGATIVE, Urine Phencyclidine Screen NEGATIVE, Urine Cocaine Metabolite Screen NEGATIVE, Urine Cannabinoids Screen NEGATIVE CBC/BMP Laboratory Tests 01/22/19 03:55 Red Blood Count 4.57, Mean Corpuscular Volume 93.2, Mean Corpuscular Hemoglobin 31.9, Mean Corpuscular Hemoglobin Concent 34.3, Red Cell Distribution Width 12.1, Neutrophils (%) (Auto) 70.9 H, Lymphocytes (%) (Auto) 23.7 L, Monocytes (%) (Auto) 4.8, Eosinophils (%) (Auto) 0.0, Basophils (%) (Auto) 0.2, Neutrophils # (Auto) 6.4, Lymphocytes # (Auto) 2.1, Monocytes # (Auto) 0.4, Eos inophils # (Auto) 0.0, Basophils # (Auto) 0.0 Assessment/Plan 33 y/o F c/o nausea, vomiting, diffuse abdominal pain, generalized rash and joint pain Labs and imaging studies reviewed. Impression- nausea, vomiting and generalized rash- unclear etiology, Might be related to ? viral infection or autoimmune etiology Plan will continue ivf, iv zofran, PO ibuprofen, Benadryl will f/u CT abdomen/pelvis, CRP, Rheumatoid factor, ESR will consider rheumatology eval. Plan / VTE VTE Prophylaxis Ordered?: No VTE Exclusion Mechanical Proph: Low Risk for VTE CARLOS FLYNN MD Jan 22, 2019 06:04
[2019-01-22] MEDS: ONDANSETRON 4MG/2ML VIAL (J2405) IV SCH ×2 (06:06→11:52)
[2019-01-22 08:00] VITALS: BP 111/59
--- NOTE | 2019-01-22 08:45 | REPVR ---
EXAM: CT Abdomen and Pelvis With Contrast EXAM DATE/TIME: 01/22/2019 5:11 AM CLINICAL HISTORY: 33 years old, female; Signs and symptoms; Vomiting; Additional info: Intractable emesis TECHNIQUE: Imaging protocol: Axial computed tomography images of the abdomen and pelvis with intravenous contrast. Coronal and sagittal reformatted images were created and reviewed. Radiation optimization: All CT scans at this facility use at least one of these dose optimization techniques: automated exposure control; mA and/or kV adjustment per patient size (includes targeted exams where dose is matched to clinical indication); or iterative reconstruction. Contrast material: ISOVUE 370; Contrast volume: 100 ml; Contrast route: IV; COMPARISON: CT ABD/PEL W/IV CONTRAST ONLY 02/28/2018 1:40 PM FINDINGS: Lungs: Mild bibasilar atelectasis. No consolidation. ABDOMEN: Liver: Mild diffuse fatty infiltration of the liver. Gallbladder and bile ducts: No calcified gallstones. No ductal dilatation. Pancreas: The pancreas is unremarkable. No ductal dilatation. Spleen: Calcified splenic granulomata. Mild splenomegaly. The spleen measures 12.8 cm in length. Adrenals: The adrenal glands are unremarkable. No mass. Kidneys and ureters: Symmetric bilateral nephrograms. No hydronephrosis. Stomach and bowel: The stomach is partially distended and appears thickened with diffuse mucosal enhancement and a mild degree of perigastric inflammatory stranding along the lesser curvature. There is oral contrast within small bowel and colon. No evidence of bowel obstruction. Relatively decompressed descending colon and rectosigmoid. Appendix: The appendix is unremarkable in appearance. PELVIS: Bladder: Unremarkable as visualized. Reproductive: Small bilateral ovarian follicles. ABDOMEN and PELVIS: Intraperitoneal space: Trace free fluid within the pelvis. No free air. Bones/joints: Bones are intact. No acute fracture. Soft tissues: Unremarkable. Vasculature: The abdominal aorta is normal in caliber. No aneurysm. Lymph nodes: No significant adenopathy. IMPRESSION: 1. The stomach is partially distended and appears thickened with diffuse mucosal enhancement and a mild degree of perigastric inflammatory stranding along the lesser curvature. Finding suggest nonspecific gastritis and/or peptic ulcer disease. Recommend followup endoscopy. 2. Mild diffuse fatty infiltration of the liver. 3. Mild splenomegaly with old granulomatous disease. 4. Trace free fluid within the pelvis. Electronically signed by: Justice Avitia On 01/22/2019 08:44:47 AM
[2019-01-22] MEDS ORDERED: PANTOPRAZOLE 40MG INJ (PROTONIX) (C9113) IV SCH (09:00)
[2019-01-22] MEDS ORDERED: ACETAMINOPHEN 500 MG TAB PO PRN (09:15)
[2019-01-22] MEDS ORDERED: KETOROLAC 30 MG/ML VIAL (J1885) IV PRN (09:15)
[2019-01-22] MEDS ORDERED: ONDA4TAB6 PO (13:07)
[2019-01-22] MEDS ORDERED: PANT40TA3 PO (13:09)
--- NOTE | 2019-01-22 15:14 | IPNPDOC ---
Date Seen The patient was seen on 01/22/19. Progress Note SUBJECTIVE: Patient was seen and examined this morning. She states that her nausea, vomiting, and rash has resolved. She currently has no complaints. She states that she does have an appetite and would like to try to eat some food and if possible go home. OBJECTIVE PHYSICAL EXAMINATION: VITAL SIGNS: Please see below. GENERAL: Awake alert and oriented. She appears in no acute distress. She is sitting in bed comfortably HEENT: Atraumatic normocephalic. Eyes are nonicteric. Trachea is midline. Dentition is fair CARDIOVASCULAR: Normal S1, S2. Regular rate and rhythm. No clicks rubs or mumurs noted on examination RESPIRATORY: Clear vesicular lung sounds bilaterally with good respiratory e ffort. No wheezes, rhonci, or rales ABDOMINAL: Soft, nondistended, nontender to palpation in all 4 quadrants. No rebound tenderness or guarding. Positive bowel sounds EXTREMITIES: No edema. Full and equal pulses in bilateral upper and lower extremities. Multiple tattoos SKIN: No rash or lesions on trunk, abdomen, extremities, chest, or face. Multiple tattoos on arms and legs NEUROLOGICAL: No focal neurological deficits PSYCHOLOGICAL: Mood and affect appear appropriate LABORATORY DATA, IMAGING STUDIES, MICROBIOLOGY: Please see below. ASSESSMENT AND PLAN: Patient is a 33 year old female with a past medical history of asthma who presented to the [facility] ER with complaint of new onset rash with nausea, vomiting and joint pain. Patient stated symptoms had been going on for approximately 1 week. She was evaluated at Urgent care and the hospital for nausea and vomiting where she was told that she likely has a virus. She states that she had gone to the hospital and after she was sent home she developed a rash that started on her knees and spread down towards her feet. She also states that she developed the rash on her chest and abdomen. This prompted her to present to the ER where she received IV benadryl. PROBLEMS: 1. Viral Gastroenteritis with viral exanthem vs autoimmune etiology -Patient presented with complaint of nausea and vomiting. She has received zofran which did stop her nausea and vomiting. She has had and appetite and her diet was advanced. She has tolerated her diet well and denies any further nausea or vomiting -The patient also presented with a rash. The rash was generalized. The rash has since subsided. This may be consistent with a viral exanthem vs allergic vs autoimmune. The patient did have a complaint of joint pain in her hands which started around the time of her illness. It is likely that her symptoms are attributed to a viral illness as they have subsided. DISPOSITION: Patient will be discharged home as she is tolerating her diet and symptom free. She may follow up with her PCP for further workup if her joint pain continues. She should return to the ER if her rash returns or symptoms worsen. A-FIB/CHADSVASC A-FIB History Current/History of A-Fib/PAF?: No VS, I&O, 24H, Fishbone Vital Signs/I&O Vital Signs Date Time Temp Pulse Resp B/P (MAP) Pulse Ox O2 Delivery O2 Flow Rate FiO2 01/22/19 08:00 97.1 83 18 111/59 (76) 97 01/22/19 06:27 Room Air Laboratory Data 24H LABS Laboratory Tests 2 01/22/19 03:55: Immature Granulocyte % (Auto) 0.4, White Blood Count 9.0, Red Blood Count 4.57, Hemoglobin 14.6, Hematocrit 42.6, Mean Corpuscular Volume 93.2, Mean Corpuscular Hemoglobin 31.9, Mean Corpuscular Hemoglobin Concent 34.3, Red Cell Distribution Width 12.1, Platelet Count 175, Neutrophils (%) (Auto) 70.9H, Lymphocytes (%) (Auto) 23.7L, Monocytes (%) (Auto) 4.8, Eosinophils (%) (Auto) 0.0, Basophils (%) (Auto) 0.2, Neutrophils # (Auto) 6.4, Lymphocytes # (Auto) 2.1, Monocytes # (Auto) 0.4, Eosinophils # (Auto) 0.0, Basophils # (Auto) 0.0, Nucleated Red Blood Cells % (auto) 0.0, Anion Gap 10, Glomerular Filtration Rate > 60.0, Calcium Level 8.4L, Aspartate Amino Transf (AST/SGOT) 27, Alanine Aminotransferase (ALT/SGPT) 35, Alkaline Phosphatase 110, Total Bilirubin 1.9#H, Direct Bilirubin 0.7H, Total Creatine Kinase 56, Total Protein 6.4, Albumin 3.8, Albumin/Globulin Ratio 1.46, Lipase 178, Urine Amphetamines Screen NEGATIVE, Urine Benzodiazepines Screen NEGATIVE, Urine Opiates Screen POSITIVEH, Urine Methadone Screen NEGATIVE, Urine Barbiturates Screen NEGATIVE, Urine Phencyclidine Screen NEGATIVE, Urine Cocaine Metabolite Screen NEGATIVE, Urine Cannabinoids Screen NEGATIVE 01/22/19 06:22: Erythrocyte Sedimentation Rate 12, C-Reactive Protein, Quantitative 5.31H, Rheumatoid Factor < 10.0 CBC/BMP Laboratory Tests 01/22/19 03:55 Red Blood Count 4.57, Mean Corpuscular Volume 93.2, Mean Corpuscular Hemoglobin 31.9, Mean Corpuscular Hemoglobin Concent 34.3, Red Cell Distribution Width 12.1, Neutrophils (%) (Auto) 70.9 H, Lymphocytes (%) (Auto) 23.7 L, Monocytes (%) (Auto) 4.8, Eosinophils (%) (Auto) 0.0, Basophils (%) (Auto) 0.2, Neutrophils # (Auto) 6.4, Lymphocytes # (Auto) 2.1, Monocytes # (Auto) 0.4, Eosinophils # (Auto) 0.0, Basophils # (Auto) 0.0 GME ATTESTATION GME ATTESTATION My faculty preceptor for this patient encounter was physically present during the encounter and was fully available. All aspects of the patient interview, examination, medical decision making process, and medical care plan development were reviewed and approved by the faculty preceptor. The faculty preceptor is aware and concurs with the plan as stated in the body of this note and will attest to such by his/her cosignature. ATTENDING NOTE I have reviewed the residents note and have personally examined the patient. I agree with the Residents physical examination and assessment and plan. JAIME SALAZAR DO Jan 22, 2019 15:14 CARLOS GRAMAJO MD January 27, 2019 17:24
== END 2019-01-22 13:17 | disposition home or self-care (01) ==
LOC: M ED 03:20 → M ED INP 03:21
PROVIDERS: ADMIT Internal Medicine; ATTEND Internal Medicine
DX: A08.4 Viral intestinal infection, unspecified (principal); B09 Unspecified viral infection characterized by skin and mucous membrane lesions; J45.909 Unspecified asthma, uncomplicated; F17.210 Nicotine dependence, cigarettes, uncomplicated; M25.50 Pain in unspecified joint; Z91.040 Latex allergy status; Z91.030 Bee allergy status; Z91.018 Allergy to other foods
CPT/HCPCS: 36415; 74177; 80048; 80076; 80307; 82550; 83690; 85025; 85652; 86140; 86431; 96374; 96375; 99284; C9113; J1100; J1200; J1885; J2405; Q9963; Q9967

== ENCOUNTER 2019-06-12 08:31 | Emergency (ER) | payer SELFPAY ==
[~2019-06-12] VITALS: Ht 162.6 cm; Wt 75.0 kg
[~2019-06-12 08:31] MED LIST changes: +BENA25CA4 PO; +PANT40TA3 PO
[2019-06-12 09:59] LABS: HCG, SERUM QUALITATIVE NEGATIVE (NEGATIVE)
[2019-06-12 11:04] LABS: CHLAMYDIA DNA AMPLIFICATION NEGATIVE (NEGATIVE); GC DNA AMPLIFICATION POSITIVE (NEGATIVE)
[2019-06-12 11:20] VITALS: BP 115/67
[2019-06-12] MEDS ORDERED: NITROFURANTOIN (MACROBID) 100 MG CAP PO ONE (11:30)
[2019-06-12] MEDS ORDERED: cefTRIAXone SOD 250 MG VIAL (J0696) IM ONE (11:30)
[2019-06-12] MEDS ORDERED: DOXYCYCLINE HYCLATE 100 MG TAB PO ONE (11:30)
[2019-06-12] MEDS ORDERED: LIDOCAINE 1% SDV 5 ML VIAL DILUENT ONE (11:30)
[2019-06-12] MEDS ORDERED: MACR100C43 PO (11:46)
[2019-06-12] MEDS ORDERED: DOXY100C37 PO (11:46)
[2019-06-13 10:27] LABS: HEPATITIS A ANTIBODY IGM NEGATIVE (NEGATIVE); HEPATITIS B CORE ANTIBODY IGM NEGATIVE (NEGATIVE); HEPATITIS B SURFACE ANTIGEN NEGATIVE (NEGATIVE); HEPATITIS C VIRUS ABY INDEX 0.1 INDEX (<0.8)
== END 2019-06-12 12:05 | disposition home or self-care (01) ==
LOC: M ED 08:31
DX: N39.0 Urinary tract infection, site not specified (principal); A54.03 Gonococcal cervicitis, unspecified; A63.0 Anogenital (venereal) warts; J45.909 Unspecified asthma, uncomplicated; F17.210 Nicotine dependence, cigarettes, uncomplicated
CPT/HCPCS: 36415; 81001; 84703; 86705; 86709; 86803; 87086; 87210; 87340; 87661; 96372; 99284; J0696

== ENCOUNTER 2019-06-15 11:56 | Emergency (ER) | payer SELFPAY ==
[~2019-06-15] VITALS: Ht 162.6 cm; Wt 73.9 kg
[~2019-06-15 11:56] MED LIST changes: +DOXY100C37 PO; +MACR100C43 PO
[2019-06-15] MEDS ORDERED: cefTRIAXone SOD 250 MG VIAL (J0696) IM ONE (12:15)
[2019-06-15] MEDS ORDERED: LIDOCAINE 1% SDV 5 ML VIAL DILUENT ONE (12:15)
[2019-06-15] MEDS ORDERED: AZITHROMYCIN 250 MG TAB PO ONE (12:15)
[2019-06-15 12:43] VITALS: BP 119/68
== END 2019-06-15 12:44 | disposition home or self-care (01) ==
LOC: M ED 11:56
DX: A54.9 Gonococcal infection, unspecified (principal); F17.210 Nicotine dependence, cigarettes, uncomplicated; N89.8 Other specified noninflammatory disorders of vagina; Z91.030 Bee allergy status; Z91.040 Latex allergy status; Z91.018 Allergy to other foods; Z79.899 Other long term (current) drug therapy
CPT/HCPCS: 96372; 99283; J0696

== ENCOUNTER → 2021-07-16 | Outpatient (CLI) | payer OTHER ==
[~2021-07-16] MED LIST changes: +DOXY-443 PO; -DOXY100C37 PO; +PANT40TA29 PO; -PANT40TA3 PO
== END ==
LOC: M LABSMTC 09:48
PROVIDERS: ATTEND Pediatrics
DX: Z20.822 Contact with and (suspected) exposure to COVID-19 (principal)
CPT/HCPCS: C9803; U0003

== ENCOUNTER → 2022-06-23 | Outpatient (REF) | payer OTHER ==
[2022-06-23 17:28] LABS: HEMATOCRIT 43.4 % (36.0-47.0); HEMOGLOBIN 14.3 g/dl (12.0-15.5); MEAN CORPUSCULAR HEMOGLOBIN 31.3 pg (27.0-33.0); MEAN CORPUSCULAR HGB CONC 32.9 g/dl (32.0-36.5); PLATELET COUNT, AUTOMATED 301 10^3/uL (150-450); RED BLOOD COUNT 4.57 10^6/uL (4.00-5.40); WHITE BLOOD COUNT 5.9 10^3/uL (4.0-10.0)
[2022-06-23 18:04] LABS: ALT/SGPT 16 U/L (12-78); BILIRUBIN,TOTAL 0.4 MG/DL (0.2-1.0); BLOOD UREA NITROGEN 11 MG/DL (7-18); CALCIUM LEVEL 9.1 MG/DL (8.5-10.1); CARBON DIOXIDE LEVEL 29 MEQ/L (21-32); CHLORIDE LEVEL 106 MEQ/L (98-107); CHOLESTEROL LEVEL 239 MG/DL (<200); CHOLESTEROL RISK RATIO 6.128 (<5); CREATININE FOR GFR 0.76 MG/DL (0.55-1.30); FREE T4 0.93 NG/DL (0.76-1.46); GLOMERULAR FILTRATION RATE > 60.0 (>60); GLUCOSE, FASTING 81 MG/DL (70-100); HDL CHOLESTEROL 39 MG/DL (>40); LDL CHOLESTEROL 164 MG/DL (<100); NON-HDL-C 200 MG/DL; POTASSIUM SERUM 4.3 MEQ/L (3.5-5.1); SODIUM LEVEL 138 MEQ/L (136-145); THYROID STIMULATING HORMONE 0.948 uIU/ML (0.358-3.740); TRIGLYCERIDES LEVEL 180 MG/DL (<150)
== END ==
LOC: M SFHCCLAY 11:06
PROVIDERS: ATTEND Nurse Practitioner Family
DX: F32.9 Major depressive disorder, single episode, unspecified (principal); Z83.3 Family history of diabetes mellitus; N32.81 Overactive bladder; Z13.220 Encounter for screening for lipoid disorders

== ENCOUNTER → 2022-06-25 | Outpatient (REF) | payer OTHER ==
[2022-06-25 17:50] LABS: BACTERIA, URINE SMALL AMOUNT; HYALINE CAST, URINE NONE SEEN /lpf (0-1); MUCUS, URINE LARGE AMOUNT (NEGATIVE); RBC, URINE 0-1 /hpf (0-3); SQUAMOUS EPITHELIAL CELL URINE SMALL AMOUNT /hpf (SMALL AMT); WBC, URINE 0-1 /hpf (0-3)
== END ==
LOC: M SMT 15:09
PROVIDERS: ATTEND Specialist
DX: R39.14 Feeling of incomplete bladder emptying (principal)

== ENCOUNTER → 2022-12-13 | Outpatient (CLI) | payer OTHER | LOC: M CLY 09:33 | PROVIDERS: ATTEND Physician Assistant | DX: S99.922A Unspecified injury of left foot, initial encounter (principal); X58.XXXA Exposure to other specified factors, initial encounter; Y92.9 Unspecified place or not applicable; Y93.9 Activity, unspecified; Y99.9 Unspecified external cause status ==

== ENCOUNTER → 2022-12-13 | Outpatient (CLI) | payer OTHER | LOC: M CLY 09:25 | PROVIDERS: ATTEND Physician Assistant | DX: S99.922A Unspecified injury of left foot, initial encounter (principal); Z53.9 Procedure and treatment not carried out, unspecified reason ==

== ENCOUNTER 2025-03-27 18:58 | Outpatient (CLI) | payer OTHER ==
[~2025-03-27] VITALS: Ht 160 cm; Wt 79.7 kg
[~2025-03-27 18:58] MED LIST changes: +DOXY-441 PO; -DOXY-443 PO; +LORA-1164 PO; -LORA-622 PO; +ONDA-282 PO; -ONDA4TAB6 PO
[2025-03-27 19:09] VITALS: BP 120/60
[2025-03-27 20:31] VITALS: BP 116/60
== END 2025-03-27 20:34 | disposition home or self-care (01) ==
LOC: M LDO 18:58
PROVIDERS: ATTEND Advanced Practice Midwife
DX: O09.523 Supervision of elderly multigravida, third trimester (principal); O99.333 Smoking (tobacco) complicating pregnancy, third trimester; O9A.23 Injury, poisoning and certain other consequences of external causes complicating the puerperium; F17.210 Nicotine dependence, cigarettes, uncomplicated; Z3A.29 29 weeks gestation of pregnancy
CPT/HCPCS: 59025; G0463

== ENCOUNTER 2025-04-25 15:16 | Outpatient (CLI) | payer OTHER ==
[~2025-04-25] VITALS: Ht 160 cm; Wt 82.2 kg
[2025-04-25 15:24] VITALS: BP 135/74
[2025-04-25] MEDS ORDERED: PRENTAB9 PO (15:27)
[2025-04-25 16:53] LABS: APPEARANCE, URINE CLEAR (CLEAR); BACTERIA, URINE AUTO NEGATIVE (NEGATIVE); BILIRUBIN, URINE AUTO NEGATIVE (NEGATIVE); BLOOD, URINE BLOOD NEGATIVE (NEGATIVE); GLUCOSE, URINE (UA) AUTO NEGATIVE (NEGATIVE); KETONE, URINE AUTO NEGATIVE (NEGATIVE); LEUKOCYTE ESTERASE, URINE AUTO NEGATIVE (NEGATIVE); NITRITE, URINE AUTO NEGATIVE (NEGATIVE); PROTEIN, URINE AUTO NEGATIVE (NEGATIVE); RBC, URINE AUTO 0 /HPF (0-3); SPECIFIC GRAVITY URINE AUTO 1.002 (1.002-1.035); SQUAMOUS EPITHELIAL CELL UR AU 1 /HPF (0-6); UROBILINOGEN, URINE AUTO 0.2 mg/dL (0.0-2.0); WBC, URINE AUTO 0 /HPF (0-3)
== END 2025-04-25 17:16 | disposition home or self-care (01) ==
LOC: M LDO 15:16
PROVIDERS: ATTEND Specialist
DX: O47.03 False labor before 37 completed weeks of gestation, third trimester (principal); O09.523 Supervision of elderly multigravida, third trimester; O26.23 Pregnancy care for patient with recurrent pregnancy loss, third trimester; O99.333 Smoking (tobacco) complicating pregnancy, third trimester; F17.290 Nicotine dependence, other tobacco product, uncomplicated
CPT/HCPCS: 59025; 81001; G0463

== ENCOUNTER → 2025-04-26 | Outpatient (CLI) | payer OTHER ==
[~2025-04-26] MED LIST changes: +PRENTAB9 PO
== END ==
LOC: M WHC 15:12
PROVIDERS: ATTEND Obstetrics & Gynecology
DX: O26.20 Pregnancy care for patient with recurrent pregnancy loss, unspecified trimester (principal); Z3A.33 33 weeks gestation of pregnancy

== ENCOUNTER 2025-05-07 13:27 | Outpatient (CLI) | payer OTHER ==
[~2025-05-07] VITALS: Ht 160 cm; Wt 83.8 kg
[2025-05-07 13:44] VITALS: BP 116/68
[2025-05-07 14:42] VITALS: BP 108/66
== END 2025-05-07 14:43 | disposition home or self-care (01) ==
LOC: M LDO 13:27
PROVIDERS: ATTEND Specialist
DX: O47.03 False labor before 37 completed weeks of gestation, third trimester (principal); O26.23 Pregnancy care for patient with recurrent pregnancy loss, third trimester; O09.523 Supervision of elderly multigravida, third trimester; Z3A.35 35 weeks gestation of pregnancy; Z91.030 Bee allergy status; Z91.040 Latex allergy status; Z91.018 Allergy to other foods
CPT/HCPCS: 59025; G0463

== ENCOUNTER → 2025-05-15 | Outpatient (REF) | payer OTHER | LOC: M SFHCWAGY 17:03 | PROVIDERS: ATTEND Obstetrics & Gynecology | DX: Z34.80 Encounter for supervision of other normal pregnancy, unspecified trimester (principal) ==

== ENCOUNTER 2025-05-24 11:30 | Outpatient (CLI) | payer OTHER ==
[~2025-05-24] VITALS: Ht 160 cm; Wt 87.6 kg
[2025-05-24 11:47] VITALS: BP 107/57
[2025-05-24] MEDS ORDERED: HOME MED LIST COMPLETE! XX SCH (11:55)
[2025-05-24 13:49] VITALS: BP 108/66
[2025-06-08] MEDS ORDERED: COLA100C5 PO (09:48)
[2025-06-08] MEDS ORDERED: IBUP80TA PO (09:48)
[2025-06-08] MEDS ORDERED: PERCOCET PO (09:48)
== END 2025-05-24 14:27 | disposition home or self-care (01) ==
LOC: M LDO 11:30
PROVIDERS: ATTEND Advanced Practice Midwife
DX: O26.893 Other specified pregnancy related conditions, third trimester (principal); O09.523 Supervision of elderly multigravida, third trimester; O26.23 Pregnancy care for patient with recurrent pregnancy loss, third trimester; N89.8 Other specified noninflammatory disorders of vagina; Z3A.37 37 weeks gestation of pregnancy; Z91.018 Allergy to other foods; Z91.030 Bee allergy status
CPT/HCPCS: 59025; G0463

== ENCOUNTER → 2025-05-24 | Outpatient (CLI) | payer OTHER | LOC: M WHC 07:42 | PROVIDERS: ATTEND Obstetrics & Gynecology | DX: O26.23 Pregnancy care for patient with recurrent pregnancy loss, third trimester (principal); Z3A.37 37 weeks gestation of pregnancy ==